=== PATIENT | female | born 1970 | race Caucasian/White ===

== ENCOUNTER → 2025-02-27 | Outpatient (CLI) | payer OTHER ==
[~2025-02-27] MED LIST: HYDR-3101 PO; LEVO500T51 PO; PROG200C9 PO; SERT50TA PO
== END | disposition home or self-care (01) ==
LOC: RAD 12:13
PROVIDERS: ATTEND Nurse Practitioner Family
DX: S67.194A Crushing injury of right ring finger, initial encounter (principal); S62.664A Nondisplaced fracture of distal phalanx of right ring finger, initial encounter for closed fracture; X58.XXXA Exposure to other specified factors, initial encounter; Y93.89 Activity, other specified; Y92.89 Other specified places as the place of occurrence of the external cause; Y99.8 Other external cause status
CPT/HCPCS: 73140-RT